=== PATIENT | female | born 1990 | race Caucasian/White ===

== ENCOUNTER 2018-05-19 19:54 | Emergency (ER) | payer OTHER ==
[~2018-05-19] VITALS: Ht 160 cm; Wt 86.2 kg
--- OUTSIDE RECORDS SUMMARY | 2018-05-19 19:56 | XMS ---
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 Maria Isabel VISIT COUNT (12 MO.) 1 JADE Anaya TOTAL 1 NOTE: Visits indicate total known visits. ED/UCC VISIT TRACKING (12 MO.) 05/19/2018 19:[address] [facility] [place] TYPE: Emergency COMPLAINT: - FLU SYMPTOMS INPATIENT VISIT TRACKING (12 MO.) No inpatient visits to display in this time frame [email or web address]
[2018-05-19] MEDS ORDERED: ZOFRAN4 MG PO (20:12)
[2018-05-19] MEDS ORDERED: KLONOPIN0.5 MG PO (20:12)
[2018-05-19] MEDS ORDERED: WELLBUTRIN SR100 MG PO (20:12)
[2018-05-19] MEDS ORDERED: RANITIDINE HCL150 M1 PO (20:12)
== END 2018-05-19 21:35 | disposition home or self-care (01) ==
LOC: ED 19:54
DX: B34.9 Viral infection, unspecified (principal); F41.9 Anxiety disorder, unspecified; F17.200 Nicotine dependence, unspecified, uncomplicated; Z79.899 Other long term (current) drug therapy
CPT/HCPCS: 87502; 99283

== ENCOUNTER 2022-03-08 18:14 | Inpatient (IN) | payer OTHER ==
[~2022-03-08] VITALS: Ht 157.5 cm; Wt 93.9 kg
[~2022-03-08 18:14] MED LIST: KLONOPIN0.5 MG PO; RANITIDINE HCL150 M1 PO; WELLBUTRIN SR100 MG PO; ZOFRAN4 MG PO
--- NOTE | 2022-03-09 08:48 | PR ---
[facility] [address] [place] [address] [place], [place] [address] Signed PP Progress Notes Datetime Report Generated by CPN: 03/09/2022 08:48 SUBJECTIVE: [id number] Pain: Within Normal Limits Nausea/Vomiting: Denies Vital Signs: [id number] Vital Signs: Reviewed; Within Normal Limits Abdomen/Uterus: Normal Lochia: Normal Extremities: Normal Progress: Normal IMPRESSION/PLAN/PROCEDURES: [id number] Impression: Normal Progression Plan: Continue Present Management Procedures: None Progress Notes: 31 yo s/p late yesterday evening, PPD 1. Doing well. Reports nicotine withdrawal. Nursing reports patient states she smokes 7 citgarettes a day. Tolerating regular diet. Ambulating. Pain controlled. Voding on her own. Requesting to be discharged to boarder status so that she can go home and check on her 11 yr old who is currently being cared for by a relative. Dispotion: Currently in house. Possible discharge home to boarder status later this evening. Signing Physician: Zunilda Becerra MD Copies: ~ *Electronically Signed* 03/09/22 0848 ZUNILDA BECERRA MD PATIENT NAME: GABI BANUELOS PROGRESS NOTE DATE OF : 89 PHYSICIAN: ZUNILDA BECERRA MD RPT #: [id number] REPORT IS CONFIDENTIAL AND NOT TO BE RELEASED WITHOUT AUTHORIZATION
--- NOTE | 2022-03-11 16:52 | PATH ---
[facility] [address] [place], [place] [address] Signed SPECIMEN(S): A PLACENTA, 3RD TRIMESTER SPECIMEN SOURCE: A. PLACENTA, 3RD TRIMESTER CLINICAL HISTORY: Mother's age: 31. OB history: A0. Gestational age: 38 and 4. Infant's weight: 6 lbs. 4 oz. score: 8/9. Maternal serologies: Rubella immune, RPR non-reactive, hepatitis screen negative, GBS negative. Specific issues of concern: Mom was COVID positive during and placenta was small and circumvallate. FINAL PATHOLOGIC DIAGNOSIS: Placenta, delivery: - Mature barton placenta with three-vessel umbilical cord (380 grams). - Acute chorioamnionitis (grade 1/2; stage 2/3) with inflammatory response in the chorionic vessels, umbilical vein, and one umbilical artery (grade 1/2; stage 2/3). - Patchy villitis of unknown etiology, low-grade, see comment. - Avascular villi, small foci. COMMENT: The reported clinical history of COVID infection during is noted. The pattern of villitis in the specimen is not typical for COVID placentitis, which typically presents with chronic intervillositis with trophoblasts necrosis. BRP:cml:C2NR MICROSCOPIC EXAMINATION: Histologic sections of all submitted blocks are examined by light microscopy. These findings, together with the gross examination, support the pathologic diagnosis. GROSS DESCRIPTION: The specimen, labeled and designated "joshua Lentz," is received fresh and placed in formalin and consists of a barton discoid placenta with the following parameters: Umbilical cord: Insertion eccentric, measurement 22.0 x 1.1 cm; trivascular. Cord coiling index (per 10 cm): 5. Lesions: Not grossly identified. Membranes: Insertion site: Marginal, bates/translucent. Intact. Other: Circumvallate insertion not identified, photographs are taken and uploaded into PATIENT NAME: GABI LENTZ PATHOLOGY DATE OF : 89 REPORT #: [id number] PHYSICIAN: [facility] PATHOLOGY PCP: NO PRIMARY CARE PHYSICIAN REPORT IS CONFIDENTIAL AND NOT TO BE RELEASED WITHOUT AUTHORIZATION [facility] [address] [place], [place] [address] Signed our [employer], red-brown hemorrhagic material between membranes (15.0 x 7.5 x 0.2 cm), one third of the surface. Chorionic Plate: Normal radiating vascular pattern, blue-purple and shiny. Lesions: Not grossly identified. Maternal Surface: Normal cotyledons, intact. Lesions: Not grossly identified. Measurement: 16.0 x 15.7 x 2.9 cm; 380 g. Cut Surface: Maroon and spongy. Peripherally pale, (less than 10% of cut surface). Lesions: Not grossly identified. Basal plate fibrin 0.1 cm in thickness. Other Findings: Not grossly identified. Cassette Summary: (A1) Membranes and umbilical cord (A2) Placenta parenchyma with membrane insertion (A3) Placenta parenchyma with hemorrhagic material (A4-A6) Placental parenchyma AC (under the direct supervision of a pathologist) The Gross Description was prepared using a voice recognition system. The report was reviewed for accuracy; however, sound-alike word errors, addition and/or deletions may occur. If there is any question about this report, please contact Client Services. PERFORMING LABORATORY: The technical component was performed by [email or web address], [address] [place] [address] (CLIA# [id number]). Professional interpretation was performed by [email or web address], [place] [facility], [address] [facility] [address] [address] (CLIA# [id number]). Diagnostician: Sd Minaya MD Pathologist Electronically Signed 03/11/2022 Copies: ~ PATIENT NAME: GABI LENTZ PATHOLOGY DATE OF : [birth year] REPORT #: [id number] PHYSICIAN: TAMEKA PATHOLOGY PCP: NO PRIMARY CARE PHYSICIAN REPORT IS CONFIDENTIAL AND NOT TO BE RELEASED WITHOUT AUTHORIZATION
== END 2022-03-09 18:24 | disposition home or self-care (01) | DRG 807 ==
LOC: FBCO 18:14 → FBC 18:25
PROVIDERS: ADMIT Obstetrics & Gynecology; ATTEND Obstetrics & Gynecology
PROC: 10E0XZZ Delivery of Products of Conception, External Approach (ICD-10-PCS; principal; 2022-03-08)
PROC: 0KQM0ZZ Repair Perineum Muscle, Open Approach (ICD-10-PCS; 2022-03-08)
PROC: 3E0334Z Introduction of Serum, Toxoid and Vaccine into Peripheral Vein, Percutaneous Approach (ICD-10-PCS; 2022-03-08)
PROC: 00HU33Z Insertion of Infusion Device into Spinal Canal, Percutaneous Approach (ICD-10-PCS; 2022-03-08)
PROC: 3E0R3BZ Introduction of Anesthetic Agent into Spinal Canal, Percutaneous Approach (ICD-10-PCS; 2022-03-08)
DX: O99.334 Smoking (tobacco) complicating childbirth (principal); Z37.0 Single live birth; F17.210 Nicotine dependence, cigarettes, uncomplicated; O26.893 Other specified pregnancy related conditions, third trimester; O99.324 Drug use complicating childbirth; Z67.41 Type O blood, Rh negative; Z20.822 Contact with and (suspected) exposure to COVID-19; F12.90 Cannabis use, unspecified, uncomplicated; Z3A.38 38 weeks gestation of pregnancy; O42.02 Full-term premature rupture of membranes, onset of labor within 24 hours of rupture; O70.1 Second degree perineal laceration during delivery
CPT/HCPCS: 01960; 36415; 83030; 85027; 85060; 86850; 86900; 86901; 87502; J1200; J2300; J2405; J2590; J2790; J2795; J3010; J7121; U0003